=== PATIENT | female | born 1965 | race Caucasian/White ===

== ENCOUNTER 2018-03-09 13:00 | Emergency (ER) | payer MEDICARE ==
[~2018-03-09] VITALS: Ht 160 cm; Wt 77.1 kg
[2018-03-09] MEDS ORDERED: LABETALOL HCL 5 MG/ML 20ML VIAL IV STA (13:02)
[2018-03-09] MEDS ORDERED: ACETAMINOPHEN/CODEINE 300MG - 30MG TAB PO ONE (13:15)
[2018-03-09] MEDS ORDERED: ASPIRIN 81 MG CHEW TAB PO ONE (13:15)
[2018-03-09 14:01] LABS: BASOPHILS # (AUTO) 0.1 (0.0-0.1); EOSINOPHILS # (AUTO) 0.1 (0.0-0.4); EOSINOPHILS % 1.1 % (0.0-6.0); HEMATOCRIT 42.9 % (34.2-44.1); HEMOGLOBIN 14.6 g/dL (12.0-16.0); LYMPHOCYTES # (AUTO) 1.9 (1.0-3.2); MEAN CORPUSCULAR HEMOGLOBIN 30.5 pg (28-32); MEAN CORPUSCULAR VOLUME 89.6 fL (81-99); MONOCYTES # (AUTO) 0.4 (0.2-0.8); MONOCYTES % 5.1 % (4.4-11.3); NEUTROPHILS # (AUTO) 4.9 (2.1-6.9); NEUTROPHILS % 66.7 % (38.7-80.0); PLATELET COUNT 212 x10e3/uL (140-360); RED BLOOD COUNT 4.79 x10e6/uL (3.6-5.1); RED CELL DISTRIBUTION WIDTH 12.8 % (11.7-14.4)
[2018-03-09 14:11] LABS: BILIRUBIN,URINE NEGATIVE (NEGATIVE); CLARITY,URINE CLEAR (CLEAR); COLOR,URINE YELLOW (YELLOW); INR 0.97; KETONES,URINE NEGATIVE (NEGATIVE); LEUKOCYTE ESTERASE ,URINE NEGATIVE (NEGATIVE); NITRITE,URINE NEGATIVE (NEGATIVE); PROTEIN,URINE DIPSTICK NEGATIVE (NEGATIVE); PROTHROMBIN TIME 12.1 seconds (11.9-14.5); URINE UROBILINOGEN 0.2 mg/dL (0.2 - 1)
[2018-03-09 14:12] LABS: PARTIAL THROMBOPLASTIN TIME 26.4 seconds (23.8-35.5); PREGNANCY TEST, URINE NEGATIVE (NEGATIVE)
[2018-03-09 14:18] LABS: ALANINE AMINOTRANSFERASE 35 IU/L (0-55); ALBUMIN 4.9 g/dL (3.5-5.0); ALBUMIN/GLOBULIN RATIO 1.3 (0.8-2.0); ALKALINE PHOSPHATASE 98 IU/L (40-150); ANION GAP 15.5 mmol/L (8-16); BLOOD UREA NITROGEN 13 mg/dL (7-26); BUN/CREATININE RATIO 12 (6-25); CALCIUM 10.6 mg/dL (8.4-10.2); CARBON DIOXIDE 25 mmol/L (22-29); CHLORIDE 104 mmol/L (98-107); CREATINE KINASE 118 IU/L (29-168); CREATININE, SERUM 1.06 mg/dL (0.57-1.11); EST GLOMERULAR FILTRATION RATE 54 ML/MIN (60-); GLUCOSE 114 mg/dL (74-118); POTASSIUM 3.5 mmol/L (3.5-5.1); SODIUM 141 mmol/L (136-145)
[2018-03-09] MEDS ORDERED: LABETALOL HCL 20 ML ONE (14:18)
[2018-03-09 14:20] LABS: BACTERIA,URINE MANY /HPF; EPITHELIAL CELLS,URINE MODERATE /LPF; MUCUS,URINE MODERATE (RARE); TRANSITIONAL EPI CELLS,URINE FEW; WBC,URINE (MAN) 0-5 /HPF (0-5)
[2018-03-09] MEDS ORDERED: LABETALOL HCL 5 MG/ML 20ML VIAL IV ONE (14:22)
== END 2018-03-09 15:20 | disposition home or self-care (01) ==
LOC: ER 13:00
DX: R51 Headache (principal); I10 Essential (primary) hypertension; E03.9 Hypothyroidism, unspecified; F32.9 Major depressive disorder, single episode, unspecified
CPT/HCPCS: 36415; 80053; 81001; 81025; 82550; 82553; 84484; 85025; 85610; 85730; 87086; 93005; 99284; J3490

== ENCOUNTER 2019-11-21 10:06 | Emergency (ER) | payer MEDICARE ==
[~2019-11-21] VITALS: Ht 160 cm; Wt 77.1 kg
[2019-11-21] MEDS ORDERED: PENICILLIN G BENZATHINE LA 1.2 MU TBX IM STA (10:26)
== END 2019-11-21 11:08 | disposition home or self-care (01) ==
LOC: ER 10:06
DX: J02.0 Streptococcal pharyngitis (principal)
CPT/HCPCS: 99282; J0561